=== PATIENT | female | born 1985 | race Hispanic/Latino ===

== ENCOUNTER 2017-11-07 11:28 | Day surgery (SDC) | payer BC ==
[~2017-11-07 11:28] MED LIST: VANCOMYCIN/0.45 NS 1 GM/250 ML 1 GM/250 ML BAG IV NR; VANCOMYCIN/NS 1 GM/250 ML 1 GM/250 ML BAG IV SCH
[2017-11-07] MEDS ORDERED: NACL BACTERIOSTATIC INFILTRATI ONE (12:05)
[2017-11-07] MEDS ORDERED: ZOFRAN IV PRN (12:37)
[2017-11-07] MEDS ORDERED: PERCOCET 5/325 PO PRN (12:37)
[2017-11-07] MEDS ORDERED: NACL 0.9% 1000 ML 1,000 ML ONE (12:40)
--- NOTE | 2017-11-07 12:45 | Anesthesia Day of Surgery ---
Anesthesia Day of Surgery - Day of Surgery Patient Examined: Yes Patient H&P Reviewed: Yes Patient is NPO: Yes
--- NOTE | 2017-11-07 12:45 | Anesthesia Consultation ---
Anesthesia Consult and Med Hx Date of service: 11/07/17 - Airway Anesthetic Teeth Evaluation: Good ROM Head & Neck: Adequate Mental/Hyoid Distance: Adequate Mallampati Class: Class II Intubation Access Assessment: Probably Good - Pulmonary Exam CTA: Yes - Cardiac Exam Cardiac Exam: RRR - Pre-Operative Health Status ASA Pre-Surgery Classification: ASA1 Proposed Anesthetic Plan: General - Pulmonary Hx Smoking: No Hx Asthma: No Hx Respiratory Symptoms: No - Cardiovascular System Hx Hypertension: No Hx Cardia Arrhythmia: No - Central Nervous System Hx Neuromuscular Disorder: No Hx Psychiatric Problems: No - Gastrointestinal Hx Gastroesophageal Reflux Disease: No (some nausea with cholecystitis) - Endocrine Hx Renal Disease: No Hx Insulin Dependent Diabetes: No Hx Thyroid Disease: No - Other Systems Hx Alcohol Use: No Hx Substance Use: No Hx Cancer: No Hx Obesity: No
[2017-11-07] MEDS ORDERED: LACTATED RINGERS 1,000 ML IV SCH (13:00)
[2017-11-07] MEDS ORDERED: VERSED IV NR (13:00)
[2017-11-07] MEDS ORDERED: PEPCID PO NR (13:00)
[2017-11-07] MEDS ORDERED: XYLOCAINE CARDIAC IV ONE (13:13)
[2017-11-07] MEDS ORDERED: QUELICIN ONE (13:13)
[2017-11-07] MEDS ORDERED: ZOFRAN ONE (13:13)
[2017-11-07] MEDS ORDERED: ZEMURON IV ONE (13:13)
[2017-11-07] MEDS ORDERED: SUBLIMAZE ONE (13:13)
[2017-11-07] MEDS ORDERED: DIPRIVAN 10 MG/ML IV ONE ×2 (13:13→14:14)
[2017-11-07] MEDS ORDERED: DECADRON ONE (13:13)
[2017-11-07] MEDS ORDERED: MARCAINE 0.25% INFILTRATI ONE ×2 (13:17→14:15)
[2017-11-07] MEDS ORDERED: CLEOCIN 600 MG/50 mL 600 MG/50 ML BAG IV NR (13:45)
[2017-11-07] MEDS ORDERED: NACL 0.9% IR ONE (14:15)
[2017-11-07] MEDS ORDERED: BENADRYL ONE (14:20)
[2017-11-07] MEDS ORDERED: NEOSTIGMINE ONE (14:31)
[2017-11-07] MEDS ORDERED: ROBINUL ONE (14:31)
[2017-11-07] MEDS: DILAUDID IV PRN ×3 (14:45→15:15)
--- NOTE | 2017-11-07 14:50 | Operative Report ---
Operative Report Operative Report: Date of procedure: 11/07/2017 Pre-operative diagnosis: Biliary dyskinesia Post-operative diagnosis: Same Procedure name(s): Laparoscopic cholecystectomy Surgeon: Dada Mcclellan MD Mechanical Engineering Technologist: Lazaro Gonzalez M.D. Anesthesia: General EBL: Minimal Complications: None Instrument Count: correct Indications: This is a 32-year-old female with a history of epigastric and right upper quadrant pain. Her workup was consistent with a biliary etiology. She was offered the above named procedures a possible treatment modality. The risks and benefits discussed until all questions were answered. She was subsequently brought to the OR. Findings: As above Procedure: We reviewed the informed consent. We placed the patient supine upon the table. After adequate anesthesia was reached, the patient was prepped and draped in usual sterile fashion. A 5 mm incision was made the level of umbilicus and a Veress needle was placed at this position. The abdomen was then insufflated to 15 mmHg and a 5 mm trocar was placed through the umbilical incision. We inserted the camera at this time. Under direct vision and after infiltration of local anesthetic an 11 mm port was placed in the epigastric location. This was followed by placement of two five mm ports in the right upper quadrant. We identified the gallbladder and the fundus was grasped. This was retracted superiorly. We then grasped the infundibulum and retracted it laterally. At this time we dissected free the cystic duct infundibular junction until the triangle of Calot was clearly identified. We placed 3 clips proximally on the cystic duct, 2 distally. We placed 2 clips proximally on the cystic artery. We transected the cystic duct sharply. We transected the cystic artery using electrocautery. We then dissected the gallbladder free from its fossa using electrocautery. This was placed in Endo Catch bag and removed the abdomen to be sent to pathology for further evaluation. We assured hemostasis at this time. We then evacuated the insufflation. We removed all ports and closed all port sites using a 4-0 Monocryl in a subcuticular fashion. The wounds were bandaged sterilely. The patient tolerated procedure well. They were taken to PACU in no apparent distress after extubation.
--- NOTE | 2017-11-07 14:51 | Post Anesthesia Evaluation ---
- Post Anesthesia Evaluation Patient Participated: Yes Airway Patent: Yes Stable Respiratory Function: Yes Nausea/Vomiting: No Temp > 96.8F: Yes Pain Manageable: Yes Adequeate Hydration: Yes Anesthesia Complications: No Block Receding Appropriately: Not Applicable Patient on Ventilator: No
--- NOTE | 2017-11-07 14:55 | Short Stay Summary ---
Short Stay Documentation Date of service: 11/07/17 - Allergies and Medications Current Medications: Allergies Penicillins Allergy (Verified 11/04/17 10:25) Rash vancomycin Adverse Reaction (Intermediate, Verified 11/07/17 13:53) Itching CAUSES ITCHING AND RED FACE Home Medications Medication Instructions Recorded Confirmed Last Taken Type No Known Home Medications [No 11/04/17 11/04/17 Unknown History Reported Home Medications] Active Medications Famotidine (Pepcid) 20 mg PO PREOP NR Stop: 11/07/17 23:59 Last Admin: 11/07/17 12:50 Dose: 20 mg Hydromorphone HCl (Dilaudid) 0.5 mg IV Q10MIN PRN PRN Reason: Pain , Severe (7-10) Vancomycin HCl (Vancomycin/0.45 Ns 1 Gm/250 Ml) 1 gm in 250 mls @ 250 mls/hr IV PREOP NR Stop: 11/07/17 21:00 Last Admin: 11/07/17 13:15 Dose: 250 mls/hr Lactated Ringer's (Lactated Ringers) 1,000 mls @ 75 mls/hr IV DIRECT WADE Last Admin: 11/07/17 12:45 Dose: 75 mls/hr Clindamycin HCl (Cleocin 600 Mg/50 Ml) 600 mg in 50 mls @ 100 mls/hr IV PREOP NR PRN Reason: Protocol Stop: 11/07/17 23:59 Midazolam HCl (Versed) 2 mg IV PREOP NR Stop: 11/07/17 23:59 Last Admin: 11/07/17 13:00 Dose: 2 mg Oxycodone/Acetaminophen (Percocet 5/325) 1 tab PO ONCE PRN PRN Reason: Pain, Moderate (4-6) - Brief post op/procedure progress note Date of procedure: 11/07/17 Pre-op diagnosis: biliary dyskinesia Post-op diagnosis: same Procedure: Laparoscopic cholecystectomy Anesthesia: GETA Findings: As above Surgeon: JOHNNIE TUCKER Campus Recruiter: GAEL KWAN Estimated blood loss: minimal Pathology: list (gallbladder) Specimen disposition: to lab Condition: stable - Disposition Condition at discharge: Stable Disposition: DC-01 TO HOME OR SELFCARE Short Stay Discharge Plan Activity: no restrictions Diet: regular, low fat Wound: open to air, keep clean and dry Follow up with: CYRUS MARCELO MD [Primary Care Provider] - 7 Days JOHNNIE TUCKER MD [Staff Physician] - 7 Days Prescriptions: Ondansetron [Zofran TAB] 4 mg PO Q8HR PRN #20 tablet PRN Reason: Nausea oxyCODONE /ACETAMINOPHEN [Percocet 5/325 mg] 1 tab PO ONCE PRN #30 tablet PRN Reason: Pain, Moderate (4-6)
[2017-11-07 16:39] VITALS: BP 110/56
== END 2017-11-07 16:34 | disposition home or self-care (01) ==
LOC: OR 11:28
PROVIDERS: ATTEND Surgery
DX: K81.1 Chronic cholecystitis (principal); K82.8 Other specified diseases of gallbladder
CPT/HCPCS: 47562; 81025; 88304; J0330; J1100; J1170; J1200; J2001; J2250; J2405; J2704; J2710; J3010; J3370; J7030; J7120